=== PATIENT | male | born 1995 | race Two or more races ===

== ENCOUNTER 2023-07-12 14:14 | Emergency (ER) | payer MEDICAID, OTHER ==
[~2023-07-12] VITALS: Ht 182.9 cm; Wt 75.0 kg
[2023-07-12 14:19] VITALS: PULSE 140; RESP 18; TEMP 97.9; O2SAT 95
[2023-07-12 14:29] VITALS: BP 125/58; PULSE 149; RESP 18; O2SAT 95
[2023-07-12] MEDS ORDERED: SODIUM CHLORIDE 0.9% 1,000 ML IVB ONE (14:30)
[2023-07-12 14:47] LABS: Basophils # (auto) 0.1 10 ^3/uL (0-0.2); Basophils % (auto) 0.5 % (0.0-2.0); Eosinophils # (auto) 0 10 ^3/uL (0-0.8); Hematocrit 48.8 % (41.0-53.0); Hemoglobin 16.2 g/dL (13.5-17.5); Lymphocytes # (auto) 3.8 10 ^3/uL (0.4-5.4); Lymphocytes % (auto) 29.5 % (10.0-50.0); Mean Corpuscular Hemoglobin 30.5 pg (28.0-32.0); Mean Corpuscular Hgb Conc. 33.1 g/dL (32.0-36.0); Mean Corpuscular Volume 92.3 fL (80.0-100.0); Monocytes # (auto) 0.8 10 ^3/uL (0-1.3); Monocytes % (auto) 6.2 % (0.0-12.0); Neutrophils # (auto) 8.2 10 ^3/uL (1.6-8.6); Neutrophils % (auto) 63.8 % (37.0-80.0); Nucleated Red Blood Cells % 0.2 %; Red Blood Cells 5.29 10^6/uL (4.5-5.90); Red Cell Distribution Width 13.9 % (11.8-14.3); White Blood Cell 12.9 10^3/uL (4.4-10.8)
[2023-07-12 14:59] LABS: Acetaminophen < 2.0 UG/ML (10.0-20.0); Alanine Aminotransferase 36 U/L (7-40); Albumin 5.1 g/dL (3.2-4.8); Alkaline Phosphatase 99 U/L (46-116); Anion Gap 10 (5-15); Aspartate Aminotransferase 30 U/L (13-40); BUN/Creatinine Ratio 8.3 (10.0-20.0); Bilirubin, Total 0.6 mg/dL (0.2-1.0); Blood Alcohol 40.1 mg/dL (<10); Blood Urea Nitrogen 9 mg/dL (9-23); Calcium 9.2 mg/dL (8.5-10.1); Carbon Dioxide 24 mmol/L (20-30); Chloride 102 mmol/L (98-107); Glucose 171 mg/dL (74-106); Potassium 3.5 mmol/L (3.5-5.1); Sodium 136 mmol/L (136-145); Total Protein 7.7 g/dL (5.7-8.2)
[2023-07-12 15:03] LABS: Salicylate < 3.0 mg/dL (2.8-20.0)
[2023-07-12] MEDS ORDERED: NALOXONE HCL 0.4 MG/ML VIAL IV ONE ×2 (15:15)
== END 2023-07-12 14:53 | disposition left against medical advice (07) ==
LOC: ER 14:14
DX: T40.411A Poisoning by fentanyl or fentanyl analogs, accidental (unintentional), initial encounter (principal); F10.10 Alcohol abuse, uncomplicated; D72.829 Elevated white blood cell count, unspecified; Y92.89 Other specified places as the place of occurrence of the external cause
CPT/HCPCS: 36415; 80053; 80320; 80329; 85025; 96374; 99283; J2310